=== PATIENT | male | born 1970 | race Caucasian/White ===

== ENCOUNTER 2020-10-22 15:25 | Emergency (ER) | payer OTHER, SELFPAY ==
[2020-10-22 15:42] VITALS: BP 130/75; PULSE 69; RESP 18; TEMP 35.9; O2SAT 97
--- NOTE | 2020-10-22 18:22 | ED.GENADULT ---
HPI - General Adult General Chief complaint: Wound/Laceration Stated complaint: head injury Time Seen by Provider: 10/22/20 17:10 Source: patient Mode of arrival: ambulatory Limitations: no limitations History of Present Illness HPI narrative: Patient presents with chief complaint of 3 cm laceration to the frontal scalp that was obtained by hitting his head on a aluminum fan blade at his home prior to arrival. He states the area was bleeding quite a bit so he was unsure if he will require stitches. Patient states he did not have any loss of consciousness, change in vision or hearing, nausea, vomiting, neurological deficits or any other symptoms. Related Data Home Medications Medication Instructions Recorded Confirmed dextroamphetamine-amphetamine 20 mg PO DAILY 10/22/20 [Adderall] diazepam [Valium] 10 mg PO BID PRN 10/22/20 Allergies Allergy/AdvReac Type Severity Reaction Status Date / Time codeine Allergy Severe Unknown Verified 10/22/20 17:13 Penicillins Allergy Severe Unknown Verified 10/22/20 17:13 avocado Allergy Unknown Verified 10/22/20 17:13 banana Allergy Unknown Verified 10/22/20 17:13 Opioids - Morphine Analogues Allergy Loss of Verified 10/22/20 17:13 Consciousness Review of Systems Review of Systems: Narrative: CONSTITUTIONAL: Denies fever, chills, or sweats. EYES: Denies visual changes, redness, or discharge. ENT: Denies rhinorrhea, congestion, sore throat, or otalgia. CARDIOVASCULAR: Denies chest pain, palpitations, or edema. RESPIRATORY: Denies cough or dyspnea. GASTROINTESTINAL: Denies abdominal pain, nausea, vomiting, or diarrhea. GENITOURINARY: Denies dysuria or hematuria. SKIN: Reports laceration denies rash or itching. MUSCULOSKELETAL: Denies back pain, joint pain, or myalgia. NEUROLOGIC: Denies headache, numbness, dizziness, or weakness. PSYCHIATRIC: Denies anxiety or depression. PMFSH Social History Social History Gender identity (if verbalized by the patient): Female Exam Narrative: Exam Narrative: GENERAL: Well-appearing, well-nourished, and in no acute distress. HEAD: 3cm non bleeding, non gaping laceration(posterior 2cm is more scratch than laceration) to the center of frontal scalp. superficial. Otherwise Normocephalic, atraumatic. EYES: PERRLA and EOMI. ENT: Nares clear, no rhinorrhea or epistaxis. Mucous membranes moist. Oropharynx without tonsillar hypertrophy exudate or other lesions. Bilateral TMs pearly frederick nonbulging. No hemotympanum. NECK: Supple. No adenopathy or masses. ROM intact. CHEST: Clear to auscultation. No respiratory distress. No wheezes rales or rhonchi HEART: Regular rate and rhythm. No murmur heard. Normal peripheral pulses. EXTREMITIES: Normal range of motion. No edema. SKIN: Warm, dry, no rash. NEURO: No focal deficits. Alert and oriented x3. PSYCH: Normal mood and affect. Course Vital Signs Vital signs: Vital Signs Temperature 96.7 F L 10/22/20 15:42 Pulse Rate 69 10/22/20 15:42 Respiratory Rate 18 10/22/20 15:42 Blood Pressure 130/75 10/22/20 15:42 Pulse Oximetry 97 10/22/20 15:42 Temperature 96.7 F L 10/22/20 15:42 Pulse Rate 69 10/22/20 15:42 Respiratory Rate 18 10/22/20 15:42 Blood Pressure 130/75 10/22/20 15:42 Pulse Oximetry 97 10/22/20 15:42 Medical Decision Making MDM Narrative Medical decision making narrative: Patient denies the impact of his hand being great. He denies loss of conscious or any neurological deficits or signs of acute brain injury. Patient states that he only came to the emergency department as he was bleeding quite a bit and he was not sure if he would need stitches. Patient is up-to-date on tetanus. Patient's wound is closed and no longer bleeding. Is not gaping well approximated. Does not need suture or staple intervention. Patient wound care instructions. Patient states that he is ready for discharge at this time. Differential Diagnosis Differential Diagnosis: C
[2020-10-22 19:09] VITALS: BP 124/76; PULSE 66; RESP 17; O2SAT 100
== END 2020-10-22 19:10 | disposition home or self-care (01) ==
PROVIDERS: Emergency Provider Emergency Medicine; PCP Internal Medicine Infectious Disease
DX: S01.01XA Laceration without foreign body of scalp, initial encounter (principal); W22.8XXA Striking against or struck by other objects, initial encounter
CPT/HCPCS: 99282

== ENCOUNTER 2020-11-10 14:44 | Emergency (ER) | payer OTHER, SELFPAY ==
--- NOTE | 2020-11-10 14:48 | ED.GENADULT ---
HPI - General Adult General Chief complaint: Dental/Oral Stated complaint: tooth infection Time Seen by Provider: 11/10/20 14:48 Source: patient Mode of arrival: ambulatory Limitations: no limitations History of Present Illness HPI narrative: 49-year-old male patient presents to the [facility] with complaints of left upper dental pain. Patient states has been kind of bothersome for the past week and today his tooth broke off at the gumline. Patient denies fevers, body aches or chills. Patient states he has not seen his dentist in a few years. Related Data Home Medications Medication Instructions Recorded Confirmed dextroamphetamine-amphetamine 30 mg PO DAILY 11/10/20 11/10/20 duloxetine 30 mg PO DIRECTED 11/10/20 11/10/20 duloxetine 60 mg PO DIRECTED 11/10/20 11/10/20 Allergies Allergy/AdvReac Type Severity Reaction Status Date / Time codeine Allergy Severe Unknown Verified 11/10/20 14:48 Penicillins Allergy Severe Unknown Verified 11/10/20 14:48 avocado Allergy Unknown Verified 11/10/20 14:48 banana Allergy Unknown Verified 11/10/20 14:48 Opioids - Morphine Analogues Allergy Loss of Verified 11/10/20 14:48 Consciousness Review of Systems Review of Systems: Narrative: CONSTITUTIONAL: Denies fever, chills, or sweats. EYES: Denies visual changes, redness, or discharge. ENT: Denies rhinorrhea, congestion, sore throat, or otalgia. Positive left upper dental pain x1 week CARDIOVASCULAR: Denies chest pain, palpitations, or edema. RESPIRATORY: Denies cough or dyspnea. GASTROINTESTINAL: Denies abdominal pain, nausea, vomiting, or diarrhea. GENITOURINARY: Denies dysuria or hematuria. SKIN: Denies rash or itching. MUSCULOSKELETAL: Denies back pain, joint pain, or myalgia. NEUROLOGIC: Denies headache, numbness, or weakness. PSYCHIATRIC: Denies anxiety or depression. [facility] Past Medical History Medical History (Updated 11/10/20 @ 15:09 by JUNG Campos) ADHD Anxiety Depression Social History Social History Gender identity (if verbalized by the patient): Female Comments At the time of my signature I agree with nursing past medical history, surgical, social, and family history. There is no relevant family history pertinent to the presenting complaint. Exam Narrative: Exam Narrative: GENERAL: Well-appearing, well-nourished, and in no acute distress. HEAD: Normocephalic, atraumatic. EYES: PERRLA and EOMI. ENT: Nares clear, no rhinorrhea or epistaxis. Mucous membranes moist. Patient has left upper canine that is broken off at the gumline with surrounding erythema and swelling noted around the gum. No obvious abscesses noted at this time. No active discharge. NECK: Supple. No lymphadenopathy CHEST: Clear to auscultation. No respiratory distress. HEART: Regular rate and rhythm. No murmur heard. Normal peripheral pulses. ABDOMEN: Soft, nontender, nondistended, normal active bowel sounds. EXTREMITIES: Normal range of motion. No edema. SKIN: Warm, dry, no rash. NEURO: No focal deficits. Alert and oriented x3. Course Vital Signs Vital signs: Vital Signs Temperature 36.3 C L 11/10/20 14:58 Pulse Rate 67 11/10/20 14:58 Respiratory Rate 16 11/10/20 14:58 Blood Pressure 133/70 11/10/20 14:58 Pulse Oximetry 98 11/10/20 14:58 Temperature 36.3 C L 11/10/20 14:58 Pulse Rate 67 11/10/20 14:58 Respiratory Rate 16 11/10/20 14:58 Blood Pressure 133/70 11/10/20 14:58 Pulse Oximetry 98 11/10/20 14:58 Vital signs reviewed Medical Decision Making Differential Diagnosis Differential Diagnosis: Differential diagnosis: Dental caries, periodontal disease, avulsed tooth, tooth infections, mandibular infection, Guillaume's angiana, upper tooth infection, dry socket, gingivitis, acute necrotizing ulcerative gingivitis, sialolithiasis. Discussed with patient we will go ahead and start him on antibiotics today for possible den
[2020-11-10 14:58] VITALS: BP 133/70; PULSE 67; RESP 16; TEMP 36.3; O2SAT 98
== END 2020-11-10 15:12 | disposition home or self-care (01) ==
PROVIDERS: Emergency Provider Nurse Practitioner Family; PCP Internal Medicine Infectious Disease
DX: S02.5XXA Fracture of tooth (traumatic), initial encounter for closed fracture (principal); X58.XXXA Exposure to other specified factors, initial encounter; F90.9 Attention-deficit hyperactivity disorder, unspecified type; F41.9 Anxiety disorder, unspecified; F32.9 Major depressive disorder, single episode, unspecified
CPT/HCPCS: 99213; G0463

== ENCOUNTER 2023-09-14 16:49 | Emergency (ER) | payer OTHER, SELFPAY ==
--- NOTE | ~2023-09-14 | US_ITS ---
EXAMINATION: US venous doppler [facility] DATE: 09/14/2023 17:22 INDICATION: Deep vein thrombosis. TECHNIQUE: Grayscale ultrasound images without and with compression and Doppler ultrasound images of the left lower extremity veins were obtained. COMPARISON: None. FINDINGS: The visualized portions of left common femoral vein, profunda (deep) femoral vein, femoral vein, popl iteal vein, peroneal veins, posterior tibial veins, and greater saphenous vein outflow are patent. IMPRESSION: 1. No deep venous thrombosis. Reviewed, dictated and finalized at location [facility] [employer] [facility]
[2023-09-14 16:53] VITALS: BP 119/74; PULSE 63; RESP 20; TEMP 36.8; O2SAT 97
[2023-09-14 20:00] VITALS: BP 121/77; PULSE 56; RESP 14; O2SAT 97
--- NOTE | 2023-09-14 20:59 | ED.GENADULT ---
[facility] - General Adult General Chief complaint: Extremity Problem,Nontraumatic Stated complaint: r./o dvt Time Seen by Provider: 09/14/23 19:15 Source: patient Mode of arrival: ambulatory Limitations: no limitations History of Present Illness HPI narrative: This is a 52-year-old male who presents to the ED with chief complaint of left lower extremity pain for the past month. 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 He felt like he pulled a muscle in his left upper leg. He has been having continuing pain and some swelling in that area and is here to rule out a DVT. Denies fevers, chills, numbness, weakness. Denies any history of DVT. Denies abdominal pain or testicular pain. Related Data Home Medications Medication Instructions Recorded Confirmed dextroamphetamine-amphetamine 30 30 mg PO DAILY 11/10/20 11/10/20 mg tablet duloxetine 30 mg capsule,delayed 30 mg PO DIRECTED 11/10/20 11/10/20 release duloxetine 60 mg capsule,delayed 60 mg PO DIRECTED 11/10/20 11/10/20 release Allergies Allergy/AdvReac Type Severity Reaction Status Date / Time codeine Allergy Severe Unknown Verified 11/10/20 14:48 Penicillins Allergy Severe Unknown Verified 11/10/20 14:48 avocado Allergy Unknown Verified 11/10/20 14:48 banana Allergy Unknown Verified 11/10/20 14:48 Opioids - Morphine Analogues Allergy Loss of Verified 11/10/20 14:48 Consciousness Review of Systems Review of Systems: All systems as dictated in [facility] Past Medical History Medical History (Updated 09/15/23 @ 00:01 by Elizabeth Berry) ADHD Anxiety Depression Social History Social History Gender identity (if verbalized by the patient): Female Exam Narrative: GENERAL: Well-appearing, well-nourished, and in no acute distress. HEAD: Normocephalic, atraumatic. EYES: PERRLA and EOMI. ENT: Nares clear, no rhinorrhea or epistaxis. Mucous membranes moist. Oropharynx without tonsillar hypertrophy exudate or other lesions. NECK: Supple. No adenopathy or masses. CHEST: No respiratory distress. Clear to auscultation. No wheezes rales or rhonchi HEART: Regular rate and rhythm. No murmur heard. Normal peripheral pulses. ABDOMEN: Soft, nontender, nondistended, normal active bowel sounds. MSK: Mild tenderness to the left groin area. No overlying skin changes. No significant swelling. neurovascularly intact distally. normal range of motion. No edema. SKIN: Warm, dry, no rash. NEURO: Alert and oriented x3. No focal deficits. PSYCH: Normal mood and affect. Course Vital Signs Vital signs: Vital Signs Temperature 98.3 F 09/14/23 16:53 Pulse Rate 63 09/14/23 16:53 Respiratory Rate 20 09/14/23 16:53 Blood Pressure 119/74 09/14/23 16:53 Pulse Oximetry 97 09/14/23 16:53 Temperature 98.3 F 09/14/23 16:53 Pulse Rate 58 L 09/14/23 21:27 Respiratory Rate 14 09/14/23 21:27 Blood Pressure 118/74 09/14/23 21:27 Pulse Oximetry 99 09/14/23 21:27 Medical Decision Making MDM Narrative Medical decision making narrative: This is a 52-year-old male who presents to the ED with chief complaint of left groin pain for the past several days. He had an injury about a month ago. Vitals are normal. Exam is relatively benign. He does have some tenderness in the left groin area. No significant swelling or overlying skin changes. He has primary concern for blood clot. Ultrasound of the left lower extremity is negative for any DVT. Discussed with patient that this is likely muscle strain or tendonitis. He feels comfortable following up with PCP. Pt will be discharged in stable condition. Return precautions given and supportive measures discussed. Pt is understanding and agreeable with plan for discharge and follow-up with PCP. Vital Signs Vital Signs: Vital Signs Temperature 98.3 F 09/14/23 16:53 Pulse Rat
[2023-09-14 21:27] VITALS: BP 118/74; PULSE 58; RESP 14; O2SAT 99
== END 2023-09-14 21:20 | disposition home or self-care (01) ==
PROVIDERS: Emergency Provider Physician Assistant; PCP Internal Medicine Infectious Disease
DX: M79.605 Pain in left leg (principal); F41.9 Anxiety disorder, unspecified; F32.A Depression, unspecified; F90.9 Attention-deficit hyperactivity disorder, unspecified type
CPT/HCPCS: 93971; 99284

== ENCOUNTER 2024-06-14 19:14 | Emergency (ER) | payer BC, SELFPAY ==
[2024-06-14 19:25] VITALS: BP 139/86; PULSE 80; RESP 18; TEMP 37.2; O2SAT 98
--- NOTE | 2024-06-14 19:35 | ED.URI ---
HPI - URI/Sore Throat General Chief Complaint: Upper Respiratory Infection Stated Complaint: chest tight/sinus/ears Source: patient and RN notes reviewed Mode of arrival: ambulatory Limitations: no limitations History of Present Illness HPI Narrative: 53-year-old male presented for complaint of sinus congestion and drainage, cough, for over 1 week; and left ear pain started today. Ear pain is described as stabbing and worse when the wind blows. Denies decreased hearing, tinnitus, ear drainage, dizziness, nausea, vomiting or fever. Cough is productive of yellow sputum. Taking oils like oregano and black seed along with Mucinex for symptoms. MD elicited complaint: cough Related Data Home Medications Medication Instructions Recorded Confirmed dextroamphetamine-amphetamine 30 30 mg PO DAILY 11/10/20 11/10/20 mg tablet duloxetine 30 mg capsule,delayed 30 mg PO DIRECTED 11/10/20 11/10/20 release duloxetine 60 mg capsule,delayed 60 mg PO DIRECTED 11/10/20 11/10/20 release Allergies Allergy/AdvReac Type Severity Reaction Status Date / Time codeine Allergy Severe Unknown Verified 06/14/24 19:28 Penicillins Allergy Severe Unknown Verified 06/14/24 19:28 avocado Allergy Unknown Verified 06/14/24 19:28 banana Allergy Unknown Verified 06/14/24 19:28 Opioids - Morphine Analogues Allergy Loss of Verified 06/14/24 19:28 Consciousness Review of Systems Review of Systems: CONSTITUTIONAL: Denies malaise, chills, sweats, fever EYES: Denies visual changes, redness, or discharge ENT: Reports rhinorrhea, congestion, sinus pain, otalgia, sore throat CARDIOVASCULAR: Denies chest pain, palpitations, edema RESPIRATORY: Reports cough, post nasal drainage. Denies dyspnea GASTROINTESTINAL: Denies abdominal pain, nausea, vomiting, diarrhea SKIN: Denies rash or itching MUSCULOSKELETAL: Denies myalgia NEUROLOGIC: Denies headache PMFSH Past Medical History Medical History ADHD Anxiety Depression Social History Social History Gender identity (if verbalized by the patient): Female Exam Narrative: GENERAL: well-appearing, nontoxic no acute distress. EYES: PERRLA, conjunctivae clear ENT: Mucous membranes moist. TM pearly frederick with dull light reflex bilaterally; no tragal tenderness. Oropharynx not erythematous without lesions or exudate, no drooling, no hoarseness, no trismus, uvula midline. No tripod positioning, muffled voice, soft palate or pharyngeal wall bulging NECK: Supple. No lymphadenopathy CHEST: Clear to auscultation, breath sounds equal. No wheezing, rhonchi, rales, or stridor. No respiratory distress, speaks in full sentences. HEART: Regular rate and rhythm. No murmur heard. SKIN: Warm, dry NEURO: Alert and oriented x3. PSYCH: Normal mood and affect Course Course Emergency Course: Patient is aware of diagnosis, understands and agrees to treatment plan. Anticipatory guidance given. Patient agrees to follow-up as directed and is aware of reasons to seek care at the emergency department. Portions of this record may have been created with voice recognition software Level of Care: Express Care Visit Vital Signs Vital signs: Vital Signs Oxygen Delivery Room Air 06/14/24 19:23 Temperature 98.9 F 06/14/24 19:25 Pulse Rate 80 06/14/24 19:25 Respiratory Rate 18 06/14/24 19:25 Blood Pressure 139/86 06/14/24 19:25 Pulse Oximetry 98 06/14/24 19:25 Oxygen Delivery Room Air 06/14/24 19:23 reviewed MDM - URI/Sore Throat MDM Narrative Medical decision making narrative: Discussed physical exam findings c/w sinusitis. Advised supportive measures and signs/symptoms to go to the ER. Pt is appropriate for outpt treatment and f/u. Differential Diagnosis Differential diagnosis: Likely upper respiratory infection, otitis media, sinusitis, viral infection and pharyngitis Discharge Plan Discharge Clinical Impression: Sinusitis Patient Disposition: Home, Self-Care Condition: Stable Instructions: Antibiotic Form, Sinusitis (ED) Additional Instructions: Take antibiotic as directed Recommendations: Flonase spray and Zyrtec (or Claritin/Nan) over the counter Cough syrup may cause drowsiness; avoid driving or take it at night time. Tylenol 1000mg every 8 hours as needed for pain Symptomatic treatment includes: rest, fluids, and increase humidity of the air at home. Follow up with your primary care provider in 1 week. Go to the ER for worsening symptoms or concerns. Prescriptions: New prednisone 50 mg tablet 50 mg PO DAILY Qty: 5 0RF doxycycline hyclate 100 mg tablet 100 mg PO BID 7 Days Qty: 14 0RF No Action dextroamphetamine-amphetamine 30 mg tablet 30 mg PO DAILY duloxetine 30 mg capsule,delayed release(DR/EC) 30 mg PO DIRECTED duloxetine 60 mg capsule,delayed release(DR/EC) 60 mg PO DIRECTED clindamycin HCl 300 mg capsule 300 mg PO BID 7 Days Qty: 14 0RF Follow-up/Referrals: David,Eduardo Andres [Primary Care Provider] - Time of Disposition: 19:38
== END 2024-06-14 19:40 | disposition home or self-care (01) ==
PROVIDERS: Emergency Provider Nurse Practitioner Family; PCP Internal Medicine Infectious Disease
DX: J32.9 Chronic sinusitis, unspecified (principal); F90.9 Attention-deficit hyperactivity disorder, unspecified type
CPT/HCPCS: 99213; G0463